=== PATIENT | male | born 2000 | race Caucasian/White ===

== ENCOUNTER 2025-01-20 14:28 | Emergency (ER) | payer BC, SELFPAY ==
--- OUTSIDE RECORDS SUMMARY | 2017-05-27 05:45 | XMS_ITS | Continuity of Care Document ---
Author Organization [facility] Address [address] [place] [address] Phone Care Team Providers Care Nature Photographer Name Role Phone Priti Horn PA-C Unavailable Unavailab le Allergies, Adverse Reactions, Alerts Substance Reaction Status Criticality No Known Allergies Active No Inform ation Medications Medication Instructions Dosage Effective Dates (start - stop) Status Comments Nasogel 0.9 % nasal spray gel spray 2 sprays in each nostril 3-4 times a day as needed for nasal dryness - Active Tender Care Lanolin topical cream apply to inside of each nasal passage twice a day as needed for nasal dryness - Active Procedures Procedure Date Office/Outpatient Visit, Est Pure Tone Audiometry; Air Only 18 Speech Audiometry Threshold Tympanometry Office/Outpatient Visit, [facility] Advance Directives Directive Yes / No Effective Date File Name No Information Encounters Encounter Description Practice Location Reason(s) For Visit Diagnoses Date Provider Providers Copied on Encounter Office/Outpat ient Visit, Est [facility], [address], [place], [id number], tel:[phone] José Antonio Gupta Acute dysfunction of right eustachian tubeAtrophic rhinitis José Antonio Marcos. [address], [place], [id number], . tel:[phone] [facility], [address], [place], [place], [address] [place] [address] tel:[phone] Audiology Acute dysfunction of right eustachian tube [place] Priti. [address], [place], [address] [place] [address]. tel:[phone] Office/Outpat ient Visit, [facility], [address] [place] [address], [address] [place] [address] tel:[phone] [place] Earache (chief complaint) Acute dysfunction of right eustachian tubeAtrophic rhinitis [place] Priti. [address], [place], [address] [place] [address], . tel:[phone] Family History Family Member Type Diagnosis Age At Onset Father Problem (finding) Maternal history of ronaldo betes mellitus Father Problem (finding) Family history of asthm a Brother Problem (finding) Family history of asthm a Payers Payer name Insurance type Covered republican ID [place] [id number] Social History Type Description Quantity Date Captured Comments Alcohol Use Details No Caffeine Use Details No Tobacco Use Status Never smoked tobacco 2017 Smoking Status Never smoker Non-Smoking Tobacco Use Details : No Details Available : No Details Available Sex Male Vital Signs Date / Time: Height Weight BMI Pulse Rate Blood Pressure Temperature Respiratory Rate Body Surface Area Head Circumference Head Circ. Percentile Wt./Erasmo. Percentile BMI percentile Pulse Ox Inhaled Ox 9:41 AM 68.00 in 68.492 kg (151.00 lbs) 22.9 6 kg/m eter (2) 97 /min 135/73 mm[Hg] 1.81 meter(2) 69 97 % Chief Complaint And Reason For Visit No Information Reason For Referral Reason For Referral No Information History Of Present Illness Encounter Date Complaint History Of Prese nt Illness Earache Earache He is here with his guardian from [facility] for new patient evaluation. A couple of weeks ago, he was flying and developed pain in his head and right ear became painful and plugged. Went to PCP and told he had an ear infection. Took antibiotics but did not finish the course. Was given Flonase as well but did not really use it. Nose has felt congested for a few months. Functional Status Date Functional Assessmen t No Information Instructions Date Instruction Additional Infor mation No Information Assessments Type Assessment Date assessment Acute dysfunction of right eusta chian tube impression Resolved. Normal hearing 2017 impression Resolved. Continue nasal saline gel as needed. assessment Atrophic rhinitis Patient Care Teams Name Effective Dates (start - stop) Status Members No Information
--- NOTE | 2025-01-20 14:31 | ED_ITS ---
HPI - General Adult General Chief complaint: General Medical Stated complaint: missed a dose of medication? Time Seen by Provider: 01/20/25 14:31 Source: patient Mode of arrival: ambulatory Limitations: no limitations History of Present Illness ED Provider: Gloria Zavala APRN HPI narrative: 24 yo male with a history of ADHD, anxiety, agoraphobia. ptsd here seeking one time doses of his effexor and adderall. He reports he left his medications in the library which is now closed. It opens tomorrow and then hell have access to his medication. He is also asking for his dose of PRN clonazepam. No SI/HI. No physical complaints. Related Data Allergies Allergy/AdvReac Type Severity Reaction Status Date / Time chlorpromazine (From Allergy Anaphylaxis Verified 01/20/25 14:39 Thorazine) haloperidol (From Haldol) Allergy Anaphylaxis Verified 01/20/25 14:39 olanzapine (From Zyprexa) Allergy Anaphylaxis Verified 01/20/25 14:39 lorazepam (From Ativan) AdvReac Nausea and Verified 01/20/25 14:39 Vomiting Review of Systems Review of Systems: Yes all other systems are reviewed and are negative Constitutional: Constitutional: Reports no additional constitutional complaints, Denies body ache(s), Denies chills, Denies fever(s), Denies headache(s) and Denies weakness Eyes: Eyes: Reports no additional eye complaints and Denies change in vision ENT: Reports system reviewed and no additional complaints, except as documented, Denies dizziness, Denies headache(s), Denies nasal congestion, Gato es nasal discharge and Denies neck pain Cardiovascular: Cardiovascular: Reports no additional cardiovascular complaints, Denies chest pain, Denies leg edema and Denies dyspnea Respiratory: Respiratory: Reports no additional respiratory complaints, Denies cough and Denies dyspnea Gastrointestinal: Gastrointestinal: Reports no additional gastrointestinal complaints, Denies abdominal pain, Denies diarrhea, Denies nausea and Denies vomiting Genitourinary: Genitourinary: Denies urinary incontinence Musculoskeletal: Musculoskeletal: Reports no additional musculoskeletal complaints, Denies back pain, Denies arthralgias, Denies joint swelling, Denies neck pain, Denies numbness and Denies tingling Integumentary/Breasts: Skin/Breast: Reports system reviewed and no additional complaints, except as docu and Denies rash Neurologic: Reports system reviewed and no additional complaints, except as documented, Denies Abnormal speech present, Denies dizziness, Denies headache(s), Denies numbness, Denies tingling and Denies weakness PMFSH Past Medical History Attestation statement: The following information was validated with the patient. Source: old records reviewed and nursing notes reviewed Social History Social History Advance Directives: No Advance Directives Information Provided: Yes Do you have a plan to hurt others: No Plan Physical Exam ED Vital Signs: Vital Signs - 24 hr 01/20/25 14:35 Temperature 98 F Pulse Rate 80 Respiratory Rate 18 Blood Pressure 144/90 H Pulse Oximetry 98 Oxygen Delivery Method Room Air BMI result Body Mass Index 28.6 Const General: cooperative, healthy appearing, comfortable and no acute distress Orientation/consciousness: patient oriented x3 Limitations: no limitations HENMT Head: Yes normal to inspection Ears: hearing grossly normal bilaterally General nose exam: Normal external nose present Face and sinus: Yes normal facial exam Mouth: Normal oral and palatal mucosa present Throat: Yes posterior oropharynx normal Eyes General: appearance normal, both eyes and all related structures Pupils: Equal, round and reactive pupils present Neck Neck: Yes normal visual inspection Chest Chest palpation & inspection: normal inspection of the chest Resp Effort & Inspection: normal respiratory effort Auscultation: clear to auscultation bilaterally Cardio Rate: regular rate Rhythm: regular rhythm Peripheral pulses: Peripheral pulses 2+ throughout GI Inspection: Yes normal to inspection Palpation (GI): Soft to palpation and nontender Auscultation: normal bowel sounds Back/Spine/Pelvis Thoracic/Lumbar Spine: thoracic and lumbar spine normal to inspection Skin General skin exam: no rashes or lesions noted Neuro General: patient oriented x3, no focal motor deficits and normal sensation to monofilament Cranial nerves: Yes Equal, round and reactive pupils present Cognition (Neuro): normal cognition Speech: No Abnormal speech present Gait exam (Neuro): Normal gait present Motor exam (neuro): 5/5 motor strength present throughout Extrem General: Yes normal to inspection Medications Administered Discontinued Medications Generic Name Dose Route Start Last Admin Trade Name Freq PRN Reason Stop Dose Admin Amphetamine/Dextroamphetamine 30 mg 01/20/25 14:40 01/20/25 14:47 Dextroamphetamine/Amphetamine Xr 10 Mg Cap.Er.24h PO 01/20/25 14:41 30 mg ONCE ONE Administration Venlafaxine HCl 75 mg 01/20/25 14:40 01/20/25 14:47 Venlafaxine Hcl Er 75 Mg Cap.Er.24h PO 01/20/25 14:41 75 mg ONCE ONE Administration Medical Decision Making Medical Decision Making MDM Narrative: 24 yo male with a history of ADHD, anxiety, agoraphobia. ptsd here seeking one time doses of his effexor and adderall. He reports he left his medications in the library which is now closed. It opens tomorrow and then dannal have access to his medication. He is also asking for his dose of PRN clonazepam. No SI/HI. No physical complaints. Will give one times doses of effexor, adderral. Will not give his prn clonazepam. VSS Differential Diagnosis Differential Diagnoses: The differential diagnosis associated with the presentation includes medication refill Admission/Observation Consideration of admission/observation: Escalation of care including admission/observation considered Discharge Plan Discharge Clinical Impression: Medication refill Patient Disposition: Home, Self-Care Instructions: Medicine Refill (ED) Referrals: Physician,Nonstaff [Physician, Medical] Print Language: Telugu
[2025-01-20 14:35] VITALS: BP 144/90; PULSE 80; RESP 18; TEMP 36.6; O2SAT 98; BMI 28.6
[2025-01-20] MEDS: Dextroamphetamine/Amphetamine XR 10 MG CAP.ER.24H 30 MG PO (14:47)
[2025-01-20] MEDS: Venlafaxine HCl ER 75 MG CAP.ER.24H PO (14:47)
[2025-01-20 14:56] VITALS: BP 144/90; PULSE 80; RESP 18; TEMP 36.6; O2SAT 98
--- OUTSIDE RECORDS SUMMARY | 2025-01-20 14:57 | XMS_ITS | Clinical Summary ---
Author Organization [facility] Address [address] [place], [place] [address] Care Team Providers Care Case Operator Name Role Phone Unknown, Provider Primary Care Provider Unava ilable Allergies Active Allergy Reactions Criticality Noted Date Comments Ziprasidone Hcl Anaphylaxis High 12/23/2024 Risperidone Hives 12/23/2024 Olanzapine Hives 12/23/2024 Medications gabapentin (NEURONTIN) 300 MG capsule Take 2 capsules (600 mg total) by mouth at bedtime. Active mirtazapine (REMERON) 7.5 MG tablet Take 1 tablet (7.5 mg total) by mouth at bedtime. Active dextroamphetam ine-amphetamin e (AdderalL) 30 mg tablet Take 1 tablet (30 mg total) by mouth 2 times a day. 8am and noon Active clonazePAM (KlonoPIN) 2 MG tablet Take 1 tablet (2 mg total) by mouth 2 times a day as needed for anxiety. Active busPIRone (BUSPAR) 7.5 MG tablet Take 1 tablet (7.5 mg total) by mouth 2 times a day. 12/25/19 25 Active nicotine (NICODERM CQ) 14 mg/[address] 1 patch on the skin daily. 12/25/19 25 Active doxepin (SINEquan) 25 MG capsule Take 1 capsule (25 mg total) by mouth at bedtime for 30 days. 30 capsule 12/27/19 25 025 Active venlafaxine ER (EFFEXOR-XR) 75 MG 24 hr capsule Take 1 capsule (75 mg total) by mouth daily with breakfast. 30 capsule 12/28/19 25 Active doxepin (SINEquan) 10 MG capsule Take 1 capsule (10 mg total) by mouth at bedtime. 025 Discontinued vortioxetine (TRINTELLIX) 10 mg Tab Take 1 tablet (10 mg total) by mouth daily. 025 Discontinued(St op taking at Discharge) buPROPion (WELLBUTRIN XL) 150 MG 24 hr tablet Take 75 mg by mouth daily. 025 Discontinued(St op taking at Discharge) Active Problems Problem Noted Date Diagnosed Date Chest pain 12/22/2024 Drug ingestion, accidental o r unintentional, initial encounter 12/22/2024 Encounters Date Type Department Care Team Description 12/22/2024 5:59 PM EDT - 12/26/2024 12:38 PM EDT Hospital Encounter [facility] [address] [place] [address] Radha Hicks MD [place], [place], Linda Acevedo PA Fabiano, Tanya L, Azeem Mayer MD Chest pain, unspecified type (Primary Dx); Confusion; Adverse effect of drug, initial encounter; Tachycardia; Abnormal electrocardiography ; Episode of recurrent major depressive disorder, unspecified depression episode severity (HCC) [F33.9] Discharge Disposition: Psychiatric Hospital 12/22/2024 Travel from Last 3 Months Social History Tobacco Use Types Packs/Day Years Used Date Smoking Tobacco: Never Passive Smoke Exposure: Never Smokeless Tobacco: Never Tobacco Cessation:Counseling Given: No Passive Exposure Comments:vapes Humiliation, Afraid, Rape, and Kick questionnair e Answer Date Recorded Within the last year, have y ou been afraid of your partner or ex-partner? No 12/23/2024 Emotionally Abused Not on file 12/23/2024 Physically Abused Not on file 12/23/2024 Sexually Abused Not on file 12/23/2024 Overall Financial Resource Strain (CARDIA) Answe r Date Recorded How hard is it for you to pa y for the very basics like food, housing, medical care, and heating? Hard 12/23/2024 Hunger Vital Sign Answer Date Recorded Within the past 12 months, y ou worried that your food would run out before you got the money to buy more. Sometimes true Ran Out of Food in the Last Year Not on file 12/23/2024 PRAPARE - Transportation Answer Date Re corded In the past 12 months, has l ack of transportation kept you from medical appointments or from getting medications? No 11/25 In the past 12 months, has l ack of transportation kept you from meetings, work, or from getting things needed for daily living? No 12/23/2024 Housing Stability Vital Sign Answer John e Recorded In the last 12 months, was t here a time when you were not able to pay the mortgage or rent on time? Yes 12/23/2024 Number of Times Moved in the Last Year Not on fi le 12/23/2024 Homeless in the Last Year No 2024 [facility] Utilities Answer Date Recorded In the past 12 months has th e electric, gas, oil, or water company threatened to shut off services in your home? No 12/23/2024 Food Insecurity Answer Date Recorded Within the past 12 months, y ou worried that your food would run out before you got the money to buy more. Sometimes true Ran Out of Food in the Last Year Not on file 12/23/2024 Intimate Partner Violence Answer Date R ecorded Emotionally Abused Not on file 12/23/2024 Within the last year, have y ou been afraid of your partner or ex-partner? No 12/23/2024 Physically Abused Not on file 12/23/2024 Sexually Abused Not on file 12/23/2024 Housing Stability Answer Date Recorded Unstable Housing in the Last Year Not on file 12/23/2024 In the last 12 months, was t here a time when you were not able to pay the mortgage or rent on time? Yes 12/23/2024 [address] Lived in the Last Year Not on f ile 12/23/2024 AUDIT C Answer Date Recorded How often have you had a dri nk containing alcohol, in the past year? 2 12/23/2024 How many standard drinks con taining alcohol have you had on a typical day when you are drinking, in the past year? 0 0 12/23/2024 How often have you had six o r more drinks on one occasion, in the past year? 0 12/23/2024 Sex and Gender Information Value Date Recorded Sex Assigned at Male 12/22/2024 5:30 PM EDT Legal Sex Male 3:52 PM EDT Gender Identity Male 12/22/2024 5:30 PM EDT Sexual Orientation Not on file Last Filed Vital Signs Vital Sign Reading Time Taken Comments Blood Pressure 110/77 12/26/2024 9:00 AM EDT Pulse 77 12/26/2024 9:00 AM EDT Temperature 36.5 C (97.7 F) 12/26/2024 9:00 AM EDT Respiratory Rate 18 12/26/2024 9:00 AM EDT Oxygen Saturation 99% 12/26/2024 9:00 AM EDT Inhaled Oxygen Concentration - - Weight 96.5 kg (212 lb 11.9 oz) 025 12:30 AM EDT Height 177.8 cm (5' 10 ) 12/23/2024 12: 30 AM EDT Body Mass Index 30.53 12/23/2024 12:30 AM EDT Plan of Treatment Health Maintenance Due Date Last Done Comments Depression Screening 2004 Hepatitis C Screening 2018 DTaP,Tdap,and Td Vaccines (1 - Tdap) 2019 COVID-19 Vaccine (2023-2 5 season) 2024 Influenza Vaccine (#1) 2024 Blood Pressure 12/26/2025 12/26/2024 Meningococcal B Vaccines Aged Out No longer eligible based on patient's age to complete this topic Meningococcal Vaccines Aged Out No lo nger eligible based on patient's age to complete this topic Pneumococcal Vaccine: Pediat rics (0 to 5 Years) and At-Risk Patients (6 to 64 Years) Aged Out No longer eligi ble based on patient's age to complete this topic Procedures Procedure Name Priority Date/Time Associated Diagnosis Comments BASIC METABOLIC PANEL Timed 12/26/2024 7:05 AM EDT CBC Timed 12/26/2024 7:05 AM EDT BASIC METABOLIC PANEL Timed 12/25/2024 7:53 AM EDT CBC Timed 12/25/2024 7:53 AM EDT ECG 12-LEAD STAT 12/23/2024 12:25 PM EDT Tachycardia CBC AND DIFFERENTIAL Routine 12/23/2024 7:30 AM EDT CBC AND DIFFERENTIAL Routine 12/23/2024 7:30 AM EDT BASIC METABOLIC PANEL Timed 12/23/2024 7:30 AM EDT CBC Timed 12/23/2024 7:30 AM EDT MAGNESIUM Routine 12/23/2024 7:30 AM EDT ECG 12-LEAD Routine 12/23/2024 4:17 AM EDT Chest pain, unspecified type TROPONIN STAT 12/23/2024 12:51 AM EDT ECG 12-LEAD STAT 12/22/2024 9:13 PM EDT CK (CREATINE KINASE) STAT 12/22/2024 9:07 PM EDT TROPONIN (ALL) STAT 12/22/2024 9:07 PM EDT XR CHEST 2 VW STAT 12/22/2024 8:53 PM EDT URINALYSIS WITH URINE CULTURE REFLEX STAT 12/22/2024 8:42 PM EDT 6-ACETYLMORPHINE SCREEN, URINE STAT 12/22/2024 8:23 PM EDT TRAMADOL SCREEN, URINE STAT 8:23 PM EDT FENTANYL SCREEN, URINE STAT 8:23 PM EDT DRUG SCREEN, URINE STAT 12/22/2024 8: 23 PM EDT CTA HEAD/NECK STAT 12/22/2024 8:[address] HEAD WO CONTRAST STAT 12/22/2024 8 :00 PM EDT RAINBOW DRAW STAT 12/22/2024 7:05 PM EDT LAVENDER TOP STAT 12/22/2024 7:05 PM EDT TROPONIN (ALL) STAT 12/22/2024 7:00 PM EDT MAGNESIUM STAT 12/22/2024 7:00 PM EDT COMPREHENSIVE METABOLIC PANEL STAT 12/22/2024 7:00 PM EDT MINT GREEN TOP STAT 12/22/2024 7:00 PM EDT LIGHT BLUE TOP STAT 12/22/2024 7:00 PM EDT SALICYLATE LEVEL STAT 12/22/2024 6:55 PM EDT ACETAMINOPHEN LEVEL STAT 12/22/2024 6 :55 PM EDT ETHANOL, BLOOD STAT 12/22/2024 6:55 PM EDT YELLOW TOP STAT 12/22/2024 6:55 PM EDT RED TOP STAT 12/22/2024 6:55 PM EDT RBC WBC PLT MORPHOLGY STAT 12/22/2024 6:26 PM EDT CBC AND DIFFERENTIAL STAT 12/22/2024 6:26 PM EDT RAINBOW DRAW STAT 12/22/2024 6:26 PM EDT CBC AND DIFFERENTIAL STAT 12/22/2024 6:26 PM EDT LAVENDER TOP STAT 12/22/2024 6:26 PM EDT ECG 12-LEAD STAT 12/22/2024 6:03 PM EDT from Last 3 Months Results * CBC (12/26/2024 7:05 AM EDT) Only the most recent of3 resultswithin the time period is included. WBC 5.02 4.00 - 11.00 K/uL 12/26/2024 7:28 AM EDT [facility] RBC 5.01 4.10 - 5.60 M/uL 12/26/2024 7:28 AM EDT [facility] Hemoglobin 15.5 12.7 - 16.7 g/dL 12/26/2024 7:28 AM EDT [facility] Hematocrit 45.9 38.0 - 50.0 % 12/26/2024 7:28 AM EDT [facility] MCH 30.9 23.0 - 37.0 pg 12/26/2024 7:28 AM EDT [facility] MCHC 33.8 29.0 - 38.0 g/dL 12/26/2024 7:28 AM EDT [facility] MCV 92 82 - 98 fL 12/26/2024 7:28 AM EDT [facility] RDW 13.4 11.5 - 15.0 % 12/26/2024 7:28 AM EDT [facility] Platelet Count 315 150 - 450 K/uL 12/26/2024 7:28 AM EDT [facility] MPV 10.9 8.0 - 14.0 fL 12/26/2024 7:28 AM EDT [facility] Blood PERIPHERAL BLOOD SPECIMEN / Unknown Venipuncture / Unknown 12/26/2024 7:05 AM EDT 12/26/2024 7:18 AM EDT Shari Boo NP LAB BLOOD ORDERABLES Final R esult [facility] [address] [place] [address], * (ABNORMAL) Basic Metabolic Panel (12/26/2024 7:05 AM EDT) Only the most recent of3 resultswithin the time period is included. Sodium 138 134 - 144 mmol/L [address] 12/26/2024 7:55 AM EDT [facility] Potassium 3.8 3.2 - 5.1 mmol/L [address] 12/26/2024 7:55 AM T [facility] Comment:Samples tested in se rum may exhibit a higher potassium value than those tested on plasma. Our current range is based on plasma testing. Chloride 103 97 - 109 mmol/L [address] 12/26/2024 7:55 AM EDT [facility] Total CO2/Bicarbonat e 25 20 - 32 mmol/L [address] 12/26/2024 7:55 AM EDT [facility] Anion Gap 10 5 - 15 mmol/L [address] 12/26/2024 7:55 AM T [facility] BUN 7(L) 9 - 26 mg/dL [address] 12/26/2024 7:55 AM EDT [facility] Creatinine, Blood 1.07 0.70 - 1.30 mg/dL [address] 12/26/2024 7:55 AM [facility] Glucose, Blood 93 70 - 110 mg/dL [address] 12/26/2024 7:55 AM T [facility] Calcium 9.9 8.5 - 10.5 mg/dL [address] 12/26/2024 7:55 AM T [facility] Estimated GFR(CKD-EPI) 97 >=60 mL/min/BSA [address] 12/26/2024 7:55 AM T [facility] Blood PERIPHERAL BLOOD SPECIMEN / Unknown Venipuncture / Unknown 12/26/2024 7:05 AM EDT 12/26/2024 7:16 AM EDT Shari Boo NP LAB BLOOD ORDERABLES Final R esult [facility] [address] [place] [address], * EKG 12 lead (12/23/2024 12:25 PM EDT) Only the most recent of4 resultswithin the time period is included. Pathologist [facility] Ventricular Heart Rate 79 BPM EKG WIN Atrial Heart Rate 79 BPM EKG WIN DC Interval 148 ms EKG WIN QRSD Interval 88 ms EKG WIN QT Interval 378 ms EKG WIN QTC Interval 433 ms EKG WIN P Darby 54 degrees EKG WIN R Darby 33 degrees EKG WIN T Wave Darby 5 degrees EKG WIN 12/23/2024 12:2 4 PM EDT 12/23/2024 1:12 PM EDT Narrative EKG WIN - 12/23/2024 1:12 PM EDT Sinus rhythm with marked sinus arrhythmia Otherwise normal ECG When compared with ECG of 23-Dec-2024 04:17, No significant change was found Confirmed by Gerri Andre ([id number]) on 12/23/2024 1:12:11 PM Procedure Note Gerri Andre MD - 12/23/2024 Sinus rhythm with marked sinus arrhythmia Otherwise normal ECG When compared with ECG of 23-Dec-2024 04:17, No significant change was found Confirmed by Gerri Andre ([id number]) on 12/23/2024 1:12:11 PM Bk Arriaga MD ECG ORDERABLES Final Result EKG [facility] [address] [place] [address] * CBC and Differential (12/23/2024 7:30 AM EDT) Only the most recent of2 resultswithin the time period is included. Pathologist [facility] WBC 5.69 4.00 - 11.00 K/uL 12/23/2024 8:16 AM EDT [facility] RBC 4.33 4.10 - 5.60 M/uL 12/23/2024 8:16 AM EDT [facility] Hemoglobin 13.6 12.7 - 16.7 g/dL 12/23/2024 8:16 AM EDT [facility] Hematocrit 39.9 38.0 - 50.0 % 12/23/2024 8:16 AM EDT [facility] MCH 31.4 23.0 - 37.0 pg 12/23/2024 8:16 AM [facility] MCHC 34.1 29.0 - 38.0 g/dL 12/23/2024 8:16 AM [facility] MCV 92 82 - 98 fL 12/23/2024 8:16 AM [facility] RDW 13.3 11.5 - 15.0 % 12/23/2024 8:16 AM [facility] Platelet Count 277 150 - 450 K/uL 12/23/2024 8:16 AM [facility] MPV 11.4 8.0 - 14.0 fL 12/23/2024 8:16 AM [facility] Neutrophil 67.5 % 12/23/2024 8:16 AM [facility] Lymphocyte 22.0 % 12/23/2024 8:16 AM [facility] Monocyte 8.6 % 12/23/2024 8:16 AM [facility] Eosinophil 1.1 % 12/23/2024 8:16 AM [facility] Basophil 0.4 % 12/23/2024 8:16 AM [facility] Immature Granulocyte (Sterling, Myelo, Promyelocyte) 0.4 % 12/23/2024 8:16 AM [facility] Absolute Neutrophil Count 3.85 1.50 - 7.70 K/uL 12/23/2024 8:16 AM [facility] Absolute Immature Granulocyte (Sterling, Myelo, Promyelocyte) 0.02 0.00 - 0.09 K/uL 12/23/2024 8:16 AM [facility] Absolute Lymphocyte Count 1.25 1.00 - 5.00 K/uL 12/23/2024 8:16 AM [facility] Absolute Monocyte Count 0.49 0.10 - 1.00 K/uL 12/23/2024 8:16 AM [facility] Absolute Eosinophil Count 0.06 0.00 - 0.70 K/uL 12/23/2024 8:16 AM [facility] Absolute Basophil Count 0.02 0.00 - 0.20 K/uL 12/23/2024 8:16 AM EDT [facility] Blood PERIPHERAL BLOOD SPECIMEN / Unknown Venipuncture / Unknown 12/23/2024 7:30 AM EDT 12/23/2024 8:10 AM EDT [facility] LAB BLOOD ORDERABLES Final R esult Performing Organization Address [facility] Co de Phone Number [facility] [address] [place] [address], * Magnesium (12/23/2024 7:30 AM EDT) Only the most recent of2 resultswithin the time period is included. Pathologist [facility] Magnesium, Blood 1.8 1.8 - 2.4 mg/dL [facility]ET[facility] [id number] 12/23/2024 8:50 AM EDT [facility] Blood PERIPHERAL BLOOD SPECIMEN / Unknown Venipuncture / Unknown 12/23/2024 7:30 AM EDT 12/23/2024 8:10 AM EDT [facility] LAB BLOOD ORDERABLES Final R esult Performing Organization Address [facility] de Phone Number [facility] [address] [place] [address], * Troponin I (12/23/2024 12:51 AM EDT) [facility] Troponin I <0.01 <0.08 ng/mL JETER [id number] 12/23/2024 1:28 AM EDT [facility] Comment: The troponin upper reference value was set at 0.08 ng/mL by [facility]ionicio with the associated rn hemodialysis after concurrent and retrospective clinical review. New reporting guidelines were published on 01/15/2014 (see below). Our value of 0.08 ng/dL exceeds the 99th percentile and 3 SD of criteria #1 and 2, and therefore, these criteria have been met. Because an elevation in the initial troponin value could be due to conditions other than acute myocardial necrosis, there should be a serial increase or decrease of 20% or more on a subsequent troponin specimen. [place] EA, et al. 2014 AGA/ACC NSTE-ACS Guideline 1. A troponin value above the 99th percentile of the upper reference level is required. Additionally, evidence for a serial increase or decrease >=20% is required if the initial value is elevated (21,178). 2. For any troponin values below or close to the 99th percentile, evidence for acute myocardial necrosis is indicated by a change of >=3 standard deviations of the variation around the initial value as determined by the individual laboratory (21,179). 3. Clinical laboratory reports should indicate whether significant changes in the cardiac troponin values for the particular assay has occurred. Blood PERIPHERAL BLOOD SPECIMEN / Unknown Venipuncture / Unknown 12/23/2024 12:51 AM EDT 12/23/2024 12:54 AM EDT [facility] LAB BLOOD ORDERABLES Final R esult [facility] [address] [place] [address], * Troponin (once) (12/22/2024 9:07 PM EDT) Only the most recent of2 resultswithin the time period is included. Troponin I <0.01 <0.08 ng/mL [employer] [id number] 12/22/2024 9:49 PM EDT [facility] Comment: The troponin upper reference value was set at 0.08 ng/mL by [facility]ionic[facility] with the associated rn hemodialysis after concurrent and retrospective clinical review. New reporting guidelines were published on 01/15/2014 (see below). Our value of 0.08 ng/dL exceeds the 99th percentile and 3 SD of criteria #1 and 2, and therefore, these criteria have been met. Because an elevation in the initial troponin value could be due to conditions other than acute myocardial necrosis, there should be a serial increase or decrease of 20% or more on a subsequent troponin specimen. [place] EA, et al. 2014 AGA/ACC NSTE-ACS Guideline 1. A troponin value above the 99th percentile of the upper reference level is required. Additionally, evidence for a serial increase or decrease >=20% is required if the initial value is elevated (21,178). 2. For any troponin values below or close to the 99th percentile, evidence for acute myocardial necrosis is indicated by a change of >=3 standard deviations of the variation around the initial value as determined by the individual laboratory (21,179). 3. Clinical laboratory reports should indicate whether significant changes in the cardiac troponin values for the particular assay has occurred. Blood PERIPHERAL BLOOD SPECIMEN / Unknown Venipuncture / Unknown 12/22/2024 9:07 PM EDT 12/22/2024 9:09 PM EDT us Radha Hicks MD LAB BLOOD ORDERABLES Final Resu lt Performing Organization Address [facility] de Phone Number [facility] [address] [place] [address], [place] [phone] * (ABNORMAL) CK (Creatine Kinase) (12/22/2024 9:07 PM EDT) Pathologist [facility] Creatine Kinase Total (CK) 244(H) 30 - 200 U/L [employer] [id number] 12/22/2024 11:49 PM EDT [facility] Blood PERIPHERAL BLOOD SPECIMEN / Unknown Venipuncture / Unknown 12/22/2024 9:07 PM EDT 12/22/2024 9:09 PM EDT us Radha Hicks MD LAB BLOOD ORDERABLES Final Resu lt Performing Organization Address [facility] de Phone Number [address] [address], [place] [phone] * XR Chest 2 Vw (12/22/2024 8:53 PM EDT) Anatomical Region Laterality Modality Chest Digital Radiogra phy 12/22/2024 9:05 PM EDT Impressions 12/22/2024 9:07 PM EDT The extreme lung apices have not been included on the examination. No acute pulmonary disease. Narrative 12/22/2024 9:07 PM EDT EXAM DESCRIPTION: XR CHEST 2 VW CLINICAL HISTORY: CP; COMPARISON: No comparisons. TECHNIQUE: Frontal and lateral views of the chest FINDINGS: The extreme lung apices are not included on the image, due to technical factors. The lungs are otherwise clear. The costophrenic angles are sharp. No evidence of pneumothorax or pneumomediastinum. The heart and mediastinal contour is normal. Procedure Note Nayana Velázquez MD - 12/22/2024 EXAM DESCRIPTION: XR CHEST 2 VW CLINICAL HISTORY: CP; COMPARISON: No comparisons. TECHNIQUE: Frontal and lateral views of the chest FINDINGS: The extreme lung apices are not included on the image, due to technical factors. The lungs are otherwise clear. The costophrenic angles are sharp. No evidence of pneumothorax or pneumomediastinum. The heart and mediastinal contour is normal. IMPRESSION: The extreme lung apices have not been included on the examination. No acute pulmonary disease. us Radha Hicks MD IMG DIAGNOSTIC IMAGING ORDERABL ES Final Result * (ABNORMAL) Urinalysis with Reflex to Urine Culture (12/22/2024 8:42 PM EDT) Color, Urine Yellow Sisi, Yellow, Dark Yellow 12/22/2024 8:57 PM EDT [facility] Clarity, Urine Clear Clear 12/22/2024 8:57 PM EDT [facility] pH, Urine 6.5 5.0 - 9.0 12/22/2024 8:57 PM EDT [facility] Protein, Urine Negative Negative 12/22/2024 8:57 PM EDT [facility] Glucose, Urine Negative Negative, 100 mg/dL 12/22/2024 8:57 PM EDT [facility] Ketone, Urine 80 mg/dL(A) Negative 12/22/2024 8:57 PM EDT [facility] Bilirubin, Urine Negative Negative 12/22/2024 8:57 PM EDT [facility] Urobilinogen, Urine 0.2 mg/dL 0.2 mg/dL, 1.0 mg/dL 12/22/2024 8:57 PM EDT [facility] Blood, Urine Negative Negative 12/22/2024 8:57 PM EDT [facility] Leukocyte Esterase, Urine Negative Negative 12/22/2024 8:57 PM EDT [facility] Nitrite, Urine Negative Negative 12/22/2024 8:57 PM EDT [facility] Specific [place], Urine >1.045(H) 1.005 - 1.035 12/22/2024 8:57 PM EDT [facility] White Blood Cells, Urine <2 <=4 /hpf 12/22/2024 8:57 PM EDT [facility] Red Blood Cell, Urine 0-2 <=2 cells/HPF 12/22/2024 8:57 PM EDT [facility] Bacteria Urine None Seen None Seen 12/22/2024 8:57 PM EDT [facility] Squamous Epithelial Cells 0-2/HPF <=5/HPF /HPF 12/22/2024 8:57 PM EDT [facility] Hyaline Cast 0-2 0 - 2 cast/LPF 12/22/2024 8:57 PM EDT [facility] Urine MID-STREAM URINE SPECIMEN / Unknown Collection / Unknown 12/22/2024 8:42 PM EDT 12/22/2024 8:45 PM EDT Radha Hicks MD URINE ORDERABLES Final Result Performing Organization Address [facility] Co de Phone Number [address] [address], [place] [phone] * 6-Acetylmorphine Screen, Urine (12/22/2024 8:23 PM EDT) 6-Aceytlmorphi ne Screen, Urine Negative Negative JETER [id number] 12/22/2024 8:49 PM EDT [facility] Urine URINE SPECIMEN / Unknown Collection / Unknown 12/22/2024 8:23 PM EDT 12/22/2024 8:25 PM EDT Radha Hicks MD URINE ORDERABLES Final Result Performing Organization Address [facility] Co de Phone Number [address] [address], [place] [phone] * (ABNORMAL) Drug Screen, Urine (12/22/2024 8:23 PM EDT) Amphetamines Screen, Urine Negative Negative 12/22/2024 8:49 PM EDT [facility] Barbiturates Screen, Urine Negative Negative 12/22/2024 8:49 PM [facility] Benzodiazepine Screen, Urine Negative Negative 12/22/2024 8:49 PM [facility] Buprenorphine Screen, Urine Negative Negative 12/22/2024 8:49 PM [facility] Cannabinoids Screen, Urine Positive(A) Negative 12/22/2024 8:49 PM [facility] Cocaine Metabolite Screen, Urine Negative Negative 12/22/2024 8:49 PM [facility] Methadone Screen, Urine Negative Negative 12/22/2024 8:49 PM [facility] Methamphetamine, Urine Negative Negative 12/22/2024 8:49 PM [facility] Opiates Screen, Urine Negative Negative 12/22/2024 8:49 PM [facility] Oxycodone Screen, Urine Negative Negative 12/22/2024 8:49 PM [facility] TCA, Urine Negative Negative 12/22/2024 8:49 PM [facility] Creatinine, Benjamin Urine 574.6 No Established Reference Range mg/dL JETER [id number] 12/22/2024 8:49 PM [facility] Fentanyl Screen, Urine Negative Negative JETER [id number] 12/22/2024 8:49 PM [facility] Tramadol Screen, Urine Negative Negative JETER [id number] 12/22/2024 8:49 PM [facility] 6-Aceytlmorphine Screen, Urine Negative Negative JETER [id number] 12/22/2024 8:49 PM [facility] Phencyclidine Screen, Urine Negative Negative 12/22/2024 8:49 PM [facility] [facility] Urine URINE SPECIMEN / Unknown Collection / Unknown 12/22/2024 8:23 PM EDT 12/22/2024 8:25 PM [facility] LABORATORY - 12/22/2024 8:49 PM ED Specimen analysis was performed without chain of custody handling. Urine drug screen results should be used for medical purposes only and not for any legal or employment evaluative purposes. Amphetamines cutoff is 500 ng/mL. Barbiturates cutoff is 200 ng/mL. Benzodiazepines cutoff is 150 ng/mL. Buprenorphine cutoff is 300 ng/mL. Cannabinoids cutoff is 50 ng/mL. Cocaine cutoff is 150 ng/mL. Methadone cutoff is 200 ng/mL. Methamphetamine cutoff is 500 ng/ml Opiates cutoff is 100 ng/mL. Oxycodone cutoff is 100 ng/mL. Phencyclidine (PCP) cutoff is 25 ng/mL TCA cutoff is 300 ng/mL Urine results are presumptive based only on screening methods and have not been confirmed by a second method. These results should be used only by physicians to render diagnosis, treatment, or to monitor progress of medical conditions. The assay is not intended to monitor compliance or absinence. Thresholds are established by the test tours hostess. Drug levels below thresholds will be reported as negative. This is an antibody-antigen methods screening test and has the potential for false positive results caused by other drugs, medications and supplements with similar structures, if results are discordant clinically. us Radha Hicks MD URINE ORDERABLES Final Result Performing Organization Address [facility] de Phone Number [address] [address], * Tramadol Screen, Urine (12/22/2024 8:23 PM EDT) Tramadol Screen, Urine Negative Negative JETER [id number] 12/22/2024 8:41 PM EDT [facility] Comment: Tramadol cutoff is 200 ng/mL Tramadol. Add-on order [id number] Tramadol Confirmation, Urine, if confirmation desired. Results should be used for medical purposes only and not for any legal or employment evaluative purposes. Urine URINE SPECIMEN / Unknown Collection / Unknown 12/22/2024 8:23 PM EDT 12/22/2024 8:25 PM EDT us Radha Hicks MD URINE ORDERABLES Final Result Performing Organization Address [facility] de Phone Number [address] [address], [place] [phone] * Fentanyl Screen, Urine (12/22/2024 8:23 PM EDT) Fentanyl Screen, Urine Negative Negative JETER [id number] 12/22/2024 8:41 PM EDT [facility] Urine URINE SPECIMEN / Unknown Collection / Unknown 12/22/2024 8:23 PM EDT 12/22/2024 8:25 PM EDT us Radha Hicks MD URINE ORDERABLES Final Result [facility] [address] [place] [address], * CT Angiogram Head Neck : Arteriogram (12/22/2024 8:00 PM EDT) Anatomical Region Laterality Modality Computed Tomogra phy 12/22/2024 9:00 PM EDT Impressions 12/22/2024 9:04 PM EDT No evidence of large vessel occlusion, high grade stenosis, dissection or aneurysm greater than 2mm. Narrative 12/22/2024 9:04 PM EDT EXAM DESCRIPTION: CT ANGIOGRAM HEAD NECK CLINICAL HISTORY: headache, confusion; , COVID positive COMPARISON: None. TECHNIQUE: Following intravenous administration of 85 mL Omnipaque 350 contrast, CTA of the neck was performed from the aortic arch to the skull vertex. Maximum intensity projection images were created in axial, sagittal and coronal planes for the head, and sagittal and coronal planes for the neck. 3. 2D and 3D reformats were obtained and reviewed. MIPS Measure #361 Patient Exposure to Ionizing Radiation was submitted to [employer] Dose [employer] Registry and MIPS Measure #359 standard nomenclature was used for Dose Index registry submission and Measure #436 Adaptive Iterative Dose Reduction (AIDR) and NEMA XR 25 DOSE check software, were used to reduce radiation dose to the patient . FINDINGS: CTA Head: - Anterior: Anterior communicating artery: Present and patent. - Right: Intracranial ICA: Patent and normal in caliber TERESA: Patent. MCA: Patent and normal in caliber. Posterior communicating artery: Patent. - Left: Intracranial ICA: Patent and normal in caliber TERESA: Patent. MCA: Patent and normal in caliber. Posterior communicating artery: Patent. - Posterior: Right vertebral artery: Co-dominant. Patent and normal in caliber. Left vertebral artery: Co-dominant. Patent and normal in caliber. Basilar artery: Patent and normal in caliber. Right LOCOMOTIVE SUPERVISOR: Patent. Left LOCOMOTIVE SUPERVISOR: Patent. - The dural venous sinuses opacify normally for phase of contrast. - - CTA Neck: - There is a left-sided 2 vessel branching pattern of the aorta. There is common origin of the left common carotid artery and brachiocephalic artery, normal variation.. Brachiocephalic artery: Patent and normal in caliber. - Right: Subclavian: Patent and normal in caliber. Common carotid artery: Patent and normal in caliber. Internal carotid artery: Patent and normal in caliber. External carotid artery: Patent. Vertebral artery: Patent and normal in caliber. - Left: Subclavian: Patent and normal in caliber. Common carotid artery: Patent and normal in caliber. Internal carotid artery: Patent and normal in caliber. External carotid artery: Patent. Vertebral artery: Patent and normal in caliber. - Non-vascular findings: - Thyroid is unremarkable. - There is no cervical or upper mediastinal lymphadenopathy. The visualized lung apices are clear. - Paranasal sinuses and mastoid air cells are patent. - No acute bony abnormality identified. REFERENCE: CAROTID STENOSIS REFERENCE: Distal internal carotid artery diameter was used as the denominator for carotid stenosis measurement, according to NASCET criteria. MILD: < 50% stenosis. MODERATE: 50-69% stenosis. SEVERE: 70-89% stenosis. HAIRLINE/CRITICAL: 90-99% stenosis. OCCLUDED: 100% stenosis. Procedure Note Nayana Velázquez MD - 12/22/2024 EXAM DESCRIPTION: CT ANGIOGRAM HEAD NECK CLINICAL HISTORY: headache, confusion; , COVID positive COMPARISON: None. TECHNIQUE: Following intravenous administration of 85 mL Omnipaque 350 contrast, CTA of the neck was performed from the aortic arch to the skull vertex. Maximum intensity projection images were created in axial, sagittal and coronal planes for the head, and sagittal and coronal planes for the neck. 3. 2D and 3D reformats were obtained and reviewed. MIPS Measure #361 Patient Exposure to Ionizing Radiation was submitted to [employer]ose[employer] Dose Index Registry and MIPS Measure #359 standard nomenclature was used for Dose Index registry submission and Measure #436 Adaptive Iterative Dose Reduction (AIDR) and NEMA XR 25 DOSE check software, were used to reduce radiation dose to the patient . FINDINGS: CTA Head: - Anterior: Anterior communicating artery: Present and patent. - Right: Intracranial ICA: Patent and normal in caliber TERESA: Patent. MCA: Patent and normal in caliber. Posterior communicating artery: Patent. - Left: Intracranial ICA: Patent and normal in caliber TERESA: Patent. MCA: Patent and normal in caliber. Posterior communicating artery: Patent. - Posterior: Right vertebral artery: Co-dominant. Patent and normal in caliber. Left vertebral artery: Co-dominant. Patent and normal in caliber. Basilar artery: Patent and normal in caliber. Right LOCOMOTIVE SUPERVISOR: Patent. Left LOCOMOTIVE SUPERVISOR: Patent. - The dural venous sinuses opacify normally for phase of contrast. - - CTA Neck: - There is a left-sided 2 vessel branching pattern of the aorta. There is common origin of the left common carotid artery and brachiocephalic artery, normal variation.. Brachiocephalic artery: Patent and normal in caliber. - Right: Subclavian: Patent and normal in caliber. Common carotid artery: Patent and normal in caliber. Internal carotid artery: Patent and normal in caliber. External carotid artery: Patent. Vertebral artery: Patent and normal in caliber. - Left: Subclavian: Patent and normal in caliber. Common carotid artery: Patent and normal in caliber. Internal carotid artery: Patent and normal in caliber. External carotid artery: Patent. Vertebral artery: Patent and normal in caliber. - Non-vascular findings: - Thyroid is unremarkable. - There is no cervical or upper mediastinal lymphadenopathy. The visualized lung apices are clear. - Paranasal sinuses and mastoid air cells are patent. - No acute bony abnormality identified. REFERENCE: CAROTID STENOSIS REFERENCE: Distal internal carotid artery diameter was used as the denominator for carotid stenosis measurement, according to NASCET criteria. MILD: < 50% stenosis. MODERATE: 50-69% stenosis. SEVERE: 70-89% stenosis. HAIRLINE/CRITICAL: 90-99% stenosis. OCCLUDED: 100% stenosis. IMPRESSION: No evidence of large vessel occlusion, high grade stenosis, dissection or aneurysm greater than 2mm. Radha Hicks MD IMG CT ORDERABLES Final Result * CT Head WO IV Contrast (12/22/2024 8:00 PM EDT) Anatomical Region Laterality Modality Head Computed Tomogra phy 12/22/2024 8:54 PM EDT Impressions 12/22/2024 8:56 PM EDT No evidence of mass effect, hemorrhage or acute ischemic insult. Narrative 12/22/2024 8:56 PM EDT EXAM DESCRIPTION: CT HEAD WO CONTRAST CLINICAL HISTORY: 24 y/o M confusion, headache; COMPARISON: No comparisons. TECHNIQUE: Axial sections from the posterior fossa to the vertex without intravenous contrast. - MIPS Measure #361 Patient Exposure to Ionizing Radiation was submitted to [employer]ose[employer] Dose Index Registry and MIPS Measure #359 standard nomenclature was used for Dose Index registry submission and Measure #436 Adaptive Iterative Dose Reduction (AIDR) and NEMA XR 25 DOSE check software, were used to reduce radiation dose to the patient FINDINGS: The ventricles are symmetrical. There is no evidence of mass effect or hemorrhage. No extra-axial collections are identified. Ulna-white matter distinction is grossly preserved. The posterior fossa is unremarkable. - The included paranasal sinuses and mastoid air cells are patent. - No fracture or acute bony abnormality identified. Procedure Note Nayana Velázquez MD - 12/22/2024 EXAM DESCRIPTION: CT HEAD WO CONTRAST CLINICAL HISTORY: 24 y/o M confusion, headache; COMPARISON: No comparisons. TECHNIQUE: Axial sections from the posterior fossa to the vertex without intravenous contrast. - MIPS Measure #361 Patient Exposure to Ionizing Radiation was submitted to [employer]ose[employer] Dose Index Registry and MIPS Measure #359 standard nomenclature was used for Dose Index registry submission and Measure #436 Adaptive Iterative Dose Reduction (AIDR) and NEMA XR 25 DOSE check software, were used to reduce radiation dose to the patient FINDINGS: The ventricles are symmetrical. There is no evidence of mass effect or hemorrhage. No extra-axial collections are identified. Luna-white matter distinction is grossly preserved. The posterior fossa is unremarkable. - The included paranasal sinuses and mastoid air cells are patent. - No fracture or acute bony abnormality identified. IMPRESSION: No evidence of mass effect, hemorrhage or acute ischemic insult. Radha Hicks MD IMG CT ORDERABLES Final Result * Lavender Top (12/22/2024 7:05 PM EDT) Only the most recent of2 resultswithin the time period is included. Lav Top Tube Received 12/22/2024 9:01 PM EDT [facility] Blood PERIPHERAL BLOOD SPECIMEN / Unknown Venipuncture / Unknown 12/22/2024 7:05 PM EDT 12/22/2024 7:11 PM EDT us Radha Hicks MD LAB BLOOD ORDERABLES Final Resu lt Performing Organization Address [facility]/ZIP Co de Phone Number [facility] [address] [place] [address], [place] [phone] * Mint Green Top (12/22/2024 7:00 PM EDT) PST Tube Received 12/22/2024 8:01 PM EDT [facility] Blood PERIPHERAL BLOOD SPECIMEN / Unknown Venipuncture / Unknown 12/22/2024 7:00 PM EDT 12/22/2024 7:02 PM EDT us Radha Hicks MD LAB BLOOD ORDERABLES Final Resu lt Performing Organization Address [facility] de Phone Number [address] [address], [place] [phone] * Blue Top (12/22/2024 7:00 PM EDT) Pathologist [facility] Blue Top Tube Received 12/22/2024 8:01 PM EDT [facility] Blood PERIPHERAL BLOOD SPECIMEN / Unknown Venipuncture / Unknown 12/22/2024 7:00 PM EDT 12/22/2024 7:02 PM EDT us Radha Hicks MD LAB BLOOD ORDERABLES Final Resu lt Performing Organization Address [facility] de Phone Number [address] [address], [place] [phone] * (ABNORMAL) Comprehensive Metabolic Panel (12/22/2024 7:00 PM EDT) Pathologist [facility] Sodium 139 134 - 144 mmol/L JETER [id number] 12/22/2024 7:33 PM [facility] Potassium 3.4 3.2 - 5.1 mmol/L [address] 12/22/2024 7:33 PM [facility] Comment:Samples tested in se rum may exhibit a higher potassium value than those tested on plasma. Our current range is based on plasma testing. Chloride 102 97 - 109 mmol/L [address] 12/22/2024 7:33 PM [facility] Total CO2/Bicarbonate 23 20 - 32 mmol/L [address] 12/22/2024 7:33 PM [facility] Anion Gap 14 5 - 15 mmol/L [address] 12/22/2024 7:33 PM [facility] BUN 10 9 - 26 mg/dL [address] 12/22/2024 7:33 PM [facility] Creatinine, Blood 1.10 0.70 - 1.30 mg/dL [address] 12/22/2024 7:33 PM [facility] Glucose, Blood 79 70 - 110 mg/dL [address] 12/22/2024 7:33 PM [facility] Calcium 9.8 8.5 - 10.5 mg/dL [address] 12/22/2024 7:33 PM [facility] Total Protein 8.9(H) 6.1 - 8.2 g/dL [address] 12/22/2024 7:33 PM [facility] Albumin, Blood 4.9 3.4 - 5.0 g/dL [address] 12/22/2024 7:33 PM [facility] Globulin Result 4.0 2.0 - 4.0 g/dL [address] 12/22/2024 7:33 PM [facility] AST (SGOT) 23 15 - 37 U/L [address] 12/22/2024 7:33 PM [facility] ALT (SGPT) 19 0 - 55 U/L [address] 12/22/2024 7:33 PM [facility] Alkaline Phosphatase 73 40 - 150 U/L [address] 12/22/2024 7:33 PM [facility] Total Bilirubin 0.8 0.2 - 1.2 mg/dL [address] 12/22/2024 7:33 PM EDT [facility] Estimated GFR(CKD-EPI) 93 >=60 mL/min/BSA JETER [id number] 12/22/2024 7:33 PM EDT [facility] Blood PERIPHERAL BLOOD SPECIMEN / Unknown Venipuncture / Unknown 12/22/2024 7:00 PM EDT 12/22/2024 7:02 PM EDT Radha Hicks MD LAB BLOOD ORDERABLES Final Resu lt [facility] [address] [place] [address], [place] [phone] * Gold Top (12/22/2024 6:55 PM EDT) Gold Top Tube Received 12/22/2024 8:01 PM EDT [facility] Blood PERIPHERAL BLOOD SPECIMEN / Unknown Venipuncture / Unknown 12/22/2024 6:55 PM EDT 12/22/2024 7:33 PM EDT Radha Hicks MD LAB BLOOD ORDERABLES Final Resu lt Performing Organization Address [facility]/ZIP Co de Phone Number [facility] [address] [place] [address], [place] [phone] * Red Top (12/22/2024 6:55 PM EDT) Red Top Tube Received 12/22/2024 9:01 PM EDT [facility] Blood PERIPHERAL BLOOD SPECIMEN / Unknown Venipuncture / Unknown 12/22/2024 6:55 PM EDT 12/22/2024 8:02 PM EDT us Radha Hicks MD LAB BLOOD ORDERABLES Final Resu lt Performing Organization Address City/[facility]/ZIP Co de Phone Number [facility] [address] [place] [address], [place] [phone] * Ethanol (12/22/2024 6:55 PM EDT) Alcohol <10 <10 mg/dL JETER [id number] 12/22/2024 8:12 PM EDT [facility] Comment: Please note: [place] legal limit = 80mg/dL (0.08 g/dL) Due to current technology, test results <10 cannot differentiate zero from very small amounts of blood alcohol, and therefore this test should not be used to verify abstinence. This testing is only for medical testing. Test is not valid for legal or employment testing. None Detected Blood PERIPHERAL BLOOD SPECIMEN / Unknown Venipuncture / Unknown 12/22/2024 6:55 PM EDT 12/22/2024 8:02 PM EDT us Radha Hicks MD LAB BLOOD ORDERABLES Final Resu lt Performing Organization Address [facility] de Phone Number [address] [address], * (ABNORMAL) Acetaminophen Level (12/22/2024 6:55 PM EDT) Acetaminophen Result,Blood <3(L) Therapuetic Range 10-30 ug/mL JETER [id number] 12/22/2024 8:33 PM EDT [facility] Comment: Acetaminophen assay showed no interference from N-Acetylcysteine (NAC) up to 1500 mg/L. Conjugated bilirubin concentrations up to 16 mg/dL did not interfere in samples with acetaminophen concentrations greater than 16.6 ug/mL. Conjugated bilirubin concentrations greater than 16 mg/dL showed a positive bias up to 13.6% at acetaminophen concentrations of 16.6 ug/mL. Blood PERIPHERAL BLOOD SPECIMEN / Unknown Venipuncture / Unknown 12/22/2024 6:55 PM EDT 12/22/2024 8:02 PM EDT us Radha Hicks MD LAB BLOOD ORDERABLES Final Resu lt Performing Organization Address [facility] Co de Phone Number [address] [address], * (ABNORMAL) Salicylate Level (12/22/2024 6:55 PM EDT) Salicylate Level, Blood <5(L) 15 - <30 mg/dL CASPAR [id number] 12/22/2024 8:33 PM EDT [facility] Blood PERIPHERAL BLOOD SPECIMEN / Unknown Venipuncture / Unknown 12/22/2024 6:55 PM EDT 12/22/2024 8:02 PM EDT Radha Hicks MD LAB BLOOD ORDERABLES Final Resu lt [facility] [address] [place] [address], [place] [phone] * RBC WBC PLT Morphology (12/22/2024 6:26 PM EDT) Morphology No significant RBC morphology noted 12/22/2024 7:08 PM EDT [facility] Platelet Estimate Platelets Adequate 12/22/2024 7:08 PM EDT [facility] Blood PERIPHERAL BLOOD SPECIMEN / Unknown Venipuncture / Unknown 12/22/2024 6:26 PM EDT 12/22/2024 6:28 PM EDT Radha Hicks MD LAB BLOOD ORDERABLES Final Resu lt Performing Organization Address City/[facility]/ZIP Co de Phone Number [facility] [address] [place] [address], [place] [phone] from Last 3 Months Insurance Advance Directives * Full Code (Latest Code Status on File) Date Activated Date Inactivated Comments 12/23/2024 12:30 AM Question Answer Comments Discussed with/per: Patient Care Teams Case Operator Relationship Specialty Start Date End Date Unknown, Provider, [address] [place] [id number] PCP - General 12/22/24
--- OUTSIDE RECORDS SUMMARY | 2025-01-20 14:57 | XMS_ITS | Clinical Summary ---
Author Organization [facility] Address [address] [facility] [address] [place] [address] Care Team Providers Care Guard Range Name Role Phone No Pcp, Per Patient Primary Care Provider Unavai lable Allergies Active Allergy Reactions Criticality Noted Date Comments Haloperidol 10/31/2023 Olanzapine 10/31/2023 Social History Tobacco Use Types Packs/Day Years Used Date Smoking Tobacco: Never Assessed Sex and Gender Information Value Date Recorded Sex Assigned at Not on file Legal Sex Male 6:34 PM EDT Gender Identity Not on file Sexual Orientation Not on file Last Filed Vital Signs Vital Sign Reading Time Taken Comments Blood Pressure 126/63 10/31/2023 11:49 PM EDT Pulse 58 10/31/2023 11:49 PM EDT Temperature 37 C (98.6 F) 10/31/2023 9:04 PM EDT Respiratory Rate 18 10/31/2023 11:49 PM EDT Oxygen Saturation 99% 10/31/2023 11:49 PM EDT Inhaled Oxygen Concentration - - Weight 91.2 kg (201 lb) 10/31/2023 6:41 PM EDT Height 177.8 cm (5' 10 ) 10/31/2023 6:41 PM EDT Body Mass Index 28.84 10/31/2023 6:41 PM EDT Plan of Treatment Health Maintenance Due Date Last Done Comments HIV Screening 2000 MMR Vaccines (1 of 1 - Stand [place] series) 2001 Varicella Vaccines (1 of 2 - 13+ 2-dose series) 2013 HPV Vaccines (1 - Male 3-dos e series) 2015 Hepatitis C Screening 2018 DTaP/Tdap/Td Vaccines (1 - Tdap) 2019 Hepatitis B Vaccines (1 of 3 - 19+ 3-dose series) 2019 Pneumococcal Vaccine: Pediat rics (0 to 5 Years) and At-Risk Patients (6 to 49 Years) (1 of 2 - PCV) 2019 Depression Screening 04/25/2024 COVID-19 Vaccine ( - 2023-2 5 season) 2024 Influenza Vaccine (#1) 2024 HIB Vaccines Aged Out No longer eligi ble based on patient's age to complete this topic Hepatitis A Vaccines Aged Out No long er eligible based on patient's age to complete this topic IPV Vaccines Aged Out No longer eligi ble based on patient's age to complete this topic Meningococcal B Vaccine Aged Out No l onger eligible based on patient's age to complete this topic Meningococcal Vaccine Aged Out No emerita magdalena eligible based on patient's age to complete this topic Rotavirus Vaccines Aged Out No longer eligible based on patient's age to complete this topic Care Teams Guard Range Relationship Specialty Start Date End Date No Pcp, Per Patient ALEXIS PCP - General 10/31/23
--- OUTSIDE RECORDS SUMMARY | 2025-01-20 14:57 | XMS_ITS | Clinical Summary ---
Author Organization [address] [place] [address] [place] [phone] Phone Care Team Providers Care Crayon Grader Name Role Phone Physician, No Pcp Primary Care Provider Unavaila ble Allergies Active Allergy Reactions Criticality Noted Date Comments [place] Anaphylaxis High 09/10/2023 Ziprasidone Hcl Anaphylaxis High 12/11/2023 Haloperidol Anaphylaxis High 12/11/2023 Chlorpromazine Anaphylaxis High 12/11/2023 Medications escitalopram (LEXAPRO) 10 mg tablet 12/07/2023 Active gabapentin (NEURONTIN) 800 mg tablet 12/07/2023 Active mirtazapine (REMERON) 30 mg tablet 12/07/2023 Active QUEtiapine (SEROquel) 100 mg tablet 12/09/2023 Active propranoloL (INDERAL) 10 mg tablet Take 1 tablet (10 mg total) by mouth 3 times daily as needed. Active levETIRAcetam (KEPPRA) 500 mg tablet Take 1 tablet (500 mg total) by mouth 3 times daily. Active hydrOXYzine pamoate (VISTARIL) 25 mg capsule Take 2 capsules (50 mg total) by mouth every 30 minutes as needed. Active DULoxetine (CYMBALTA) [address] capsule 12/08/2023 Activ e doxepin (SINEquan) 50 mg capsule 12/08/2023 Active dicyclomine (BENTYL) 20 mg tablet Take 1 tablet (20 mg total) by mouth every 6 hours as needed. Active diazePAM (VALIUM) 5 mg tablet 12/08/2023 Active Social History Tobacco Use Types Packs/Day Years Used Date Smoking Tobacco: Unknown Tobacco Cessation:Counseling Given: Not Answered Alcohol Use Standard Drinks/Week Comments Not Currently 0 (1 standard drink = 0.6 oz pur e alcohol) Interpersonal Safety Answer Date Record ed Physical Abuse Unrecognized value 12/12/2023 Verbal Abuse Unrecognized value 12/12/2023 Sex and Gender Information Value Date Recorded Sex Assigned at Not on file Legal Sex Male 8:03 PM EDT Gender Identity Not on file Sexual Orientation Not on file Obstetrics History Last Filed Vital Signs Vital Sign Reading Time Taken Comments Blood Pressure 111/64 12/12/2023 7:06 AM EDT Pulse 105 12/12/2023 7:06 AM EDT Temperature 36.8 C (98.2 F) 12/11/2023 5:39 PM EDT Respiratory Rate 18 12/12/2023 7:06 AM EDT Oxygen Saturation 99% 12/12/2023 7:06 AM EDT Inhaled Oxygen Concentration - - Weight 98.4 kg (217 lb) 12/11/2023 3:13 AM EDT Height 180.3 cm (5' 11 ) 12/11/2023 3:13 AM EDT Body Mass Index 30.27 12/11/2023 3:13 AM EDT Plan of Treatment Health Maintenance Due Date Last Done Comments HIV Screening 09/10/2023 Hepatitis C Screening 09/10/2023 Social Influencers of Health Screening 09/10/2023 Depression Screening 04/25/2024 COVID-19 Vaccine ( season) 2024 10/21/2020, 09/12/2020 Influenza Vaccine (#1) 2024 8, 02/19/2016, 02/19/2015, Additional history exists DTaP,Tdap,and Td Vaccines (8 - Td or Tdap) 09/27/2033 09/28/2023, 01/27/2012, 12/18/2009, Additional history exists RSV Immunization Adult Patients (1 - 1-dose 75+ series) 2075 Hepatitis B Vaccines Completed 2000, 2000, 2000 HIB Vaccines Completed 10/04/2001, 10/24, 2000, Additional history exists IPV Vaccines Completed 05/27/2004, 07/2001, 2000, Additional history exists MMR Vaccines Completed 05/27/2004, 05/13/2001 Varicella Vaccines Completed 06/15/2010, 01/17/2002 Hepatitis A Vaccines Completed 12/16/2010, 06/15/19 11 HPV Vaccines Completed 05/13/2014, 09/2013, 08/21/2012 Meningococcal ACWY Vaccine Completed 12/30/2016, Meningococcal B Vaccine Aged Out No l onger eligible based on patient's age to complete this topic Pneumococcal Vaccine: Pediatrics (0 to 5 Years) and At-Risk Patients (6 to 49 Years) Aged Out No longer eligible based on patient's age to complete this topic RSV Immunization Patients Under 20 months Aged Out No longer eligible based on patient's age to complete this topic Insurance MEDICAID - [place] [facility]) Care Teams Crayon Grader Relationship Specialty Start Date End Date Physician, No Pcp PCP - General 09/10/23
== END 2025-01-20 14:57 | disposition home or self-care (01) ==
LOC: HO.ED 14:54
PROVIDERS: Emergency Provider Emergency Medicine
DX: Z76.0 Encounter for issue of repeat prescription (principal); F90.9 Attention-deficit hyperactivity disorder, unspecified type
CPT/HCPCS: 99282; 99283